=== PATIENT | male | born 1965 ===

== ENCOUNTER 2024-08-30 06:55 | Day surgery (SDC) | payer OTHER ==
[~2024-08-30 06:55] MED LIST: AMLODIPINE-OLM1 EAC1 PO
[2024-08-30] MEDS ORDERED: METRONIDAZOLE/SODIUM CHLORIDE 500 MG/100 ML PIGGYBACK IV ONE (15:30)
[2024-08-30] MEDS ORDERED: HEMOSTATIC MATRIX 1 KIT KIT TOP ONE (15:30)
[2024-08-30] MEDS ORDERED: TRIAMCINOLONE ACETONIDE 40 MG/ML VIAL IJ ONE (15:30)
[2024-08-30] MEDS ORDERED: DIBUCAINE 15 GM OINT..GM. TUBE RECTAL ONE (15:30)
== END 2024-08-30 17:00 | disposition home or self-care (01) ==
LOC: CIR.AMB 06:55
PROVIDERS: ATTEND Colon & Rectal Surgery
DX: K64.2 Third degree hemorrhoids (principal); K64.3 Fourth degree hemorrhoids; K64.4 Residual hemorrhoidal skin tags; K62.2 Anal prolapse; I10 Essential (primary) hypertension; G62.9 Polyneuropathy, unspecified